=== PATIENT | female | born 1950 | race Caucasian/White ===

== ENCOUNTER 2024-03-05 07:36 | Outpatient (CLI) | payer BC, SELFPAY ==
--- NOTE | 2024-03-05 09:14 | W.ANESCHARGE ---
Anesthesia Charges Start Date/Time Anesthesia Start Date: 03/05/24 Anesthesia Start Time: 08:33 Stop Date/Time Anesthesia Stop Date: 03/05/24 Anesthesia Stop Time: 09:06 Summary Extremes of Age - Over 70 or under 1: [employer]
--- NOTE | 2024-03-05 09:26 | W.ANESCHARGE ---
Anesthesia Charges Start Date/Time Anesthesia Start Date: 03/05/24 Anesthesia Start Time: 08:33 Stop Date/Time Anesthesia Stop Date: 03/05/24 Anesthesia Stop Time: 09:06 Summary Extremes of Age - Over 70 or under 1: MDA
== END 2024-03-05 07:37 | disposition home or self-care (01) ==
PROVIDERS: PCP Family Medicine; Visit Provider Internal Medicine Gastroenterology
DX: Z12.11 Encounter for screening for malignant neoplasm of colon (principal); Q43.8 Other specified congenital malformations of intestine; Z83.719 Family history of colon polyps, unspecified
CPT/HCPCS: 00811; 00812; 45378; 99100; J2704